=== PATIENT | female | born 1995 | race Caucasian/White ===

== ENCOUNTER 2017-07-23 12:29 | Emergency (ER) | payer OTHER ==
--- NOTE | 2017-07-23 13:24 | EDM.PDOC ---
ED HPI GENERAL MEDICAL PROBLEM - General Chief Complaint: Chest Pain Stated Complaint: CHEST PAIN Time Seen by Provider: 07/23/17 12:50 Source of Information: Reports: Patient History Limitations: Reports: No Limitations - History of Present Illness INITIAL COMMENTS - FREE TEXT/NARRATIVE: Patient is a 22-year-old female who presents to the ED complaining of sharp, tight, chest discomfort that has been present for the past 3 weeks. Pain is worse in the morning and also while exerting herself while at work. Patient works at [employer] and notes increasing pain with lifting items. At times she is short of breath with exertion. There is no cough. No hemoptysis. No recent concerns for infection. In addition she's lost approx. 30 pounds since April. States this is without trying. She's had a slight increase in her exercise routine including walking at night. Her diet is unchanged. Pain to the chest does wax and wane with intensity. Pain is worse with bending over. This is not related to food. She denies any acid reflux. There is no diarrhea or blood in her stool or dark tarry stools noted. She has a history anxiety and discontinued taking Prozac this past December. She states there is a family history of hypercoagulable disorders of unknown name. Her aunt had a blood clot to the lung last year that required intervention after suffering cardiac arrest twice while enroute to the hospital for definitive therapy. In addition there's been concerns of bruising easily to her lower extremities. Patient has not been diagnosed with asthma. States she's been using albuterol inhaler when her chest gets tight during exercise. Patient is on no control. She does not smoke. Left Upper Chest Pain Score (Numeric/FACES): 5 - Related Data Allergies Allergy/AdvReac Type Severity Reaction Status Date / Time amoxicillin Allergy Hives Verified 03/29/16 01:57 carbamide peroxide Allergy Rash Verified 03/29/16 01:57 [From Debrox] cefuroxime axetil Allergy Rash Verified 03/29/16 01:57 [From Ceftin] Home Meds: Home Meds . [No Known Home Meds] 07/23/17 [History] Past Medical History - Past Health History Medical/Surgical History: Denies Medical/Surgical History Respiratory History: Reports: Asthma CT MRI TECHNOLOGIST History: Reports: Other (See Below) Other OB/BYN History: ruptured right cyst 2 years ago - Past Surgical History HEENT Surgical History: Reports: Other (See Below) Other HEENT Surgeries/Procedures: wisdom teeth extraction Social & Family History - Family History Family Medical History: Noncontributory - Tobacco Use Smoking Status *Q: Never Smoker Second Hand Smoke Exposure: No - Caffeine Use Caffeine Use: Reports: None - Recreational Drug Use Recreational Drug Use: No - Living Situation & Occupation Living situation: Reports: with Family Occupation: Student ED ROS GENERAL - Review of Systems Review Of Systems: See Below Constitutional: Denies: Weakness, Fatigue, Decreased Appetite Respiratory: Reports: Shortness of Breath (at times with exertion. ). Denies: Cough, Hemoptysis Cardiovascular: Reports: Chest Pain (along the left sternal border 3rd and 4th intercostal space. ), Dyspnea on Exertion (at times) GI/Abdominal: Reports: No Symptoms Musculoskeletal: Reports: Back Pain (midthoracic back at times ) Skin: Reports: No Symptoms Neurological: Reports: No Symptoms ED EXAM, GENERAL - Physical Exam Exam: See Below Exam Limited By: No Limitations General Appearance: Alert, WD/WN, No Apparent Distress Ears: Hearing Grossly Normal Nose: Normal Inspection Throat/Mouth: Normal Voice, No Airway Compromise Head: Atraumatic, Normocephalic Neck: Normal Inspection, Supple Respiratory/Chest: No Respiratory Distress, Lungs Clear, Normal Breath Sounds, No Accessory Muscle Use, Other (Tenderness along the sternal border side 3 and 4th intercostal space. No swelling, no rash, no bony abnormalities.) Cardiovascular: Normal Peripheral Pulses, Regular Rate, Rhythm, No Murmur Peripheral Pulses: 4+: Radial (L) GI/Abdominal: Normal Bowel Sounds, Soft, Non-Tender, No Organomegaly, No Distention Extremities: Normal Inspection, Normal Range of Motion, Non-Tender, No Pedal Edema Neurological: Alert, Oriented, CN II-XII Intact, Normal Cognition, No Motor/ Sensory Deficits Psychiatric: Normal Affect, Normal Mood Skin Exam: Warm, Dry, Normal Color, No Rash Course - Vital Signs Last Recorded V/S: Last Vital Signs Temp 98.4 F 07/23/17 12:34 Pulse 104 H 07/23/17 12:34 Resp 18 07/23/17 12:34 BP 123/75 07/23/17 12:34 Pulse Ox 99 06/05/18 12:34 - Orders/Labs/Meds Orders: Active Orders 24 hr Category Date Time Status EKG Documentation Completion [RC] STAT Care 07/23/17 13:07 Active Chest 1V Frontal [CR] Stat Exams 07/23/17 13:07 Taken DRUG SCREEN, URINE [URCHEM] Stat Lab 07/23/17 13:38 Ordered HCG QUALITATIVE,URINE [URCHEM] Stat Lab 07/23/17 13:38 Ordered Labs: Laboratory Tests 07/23/17 07/23/17 07/23/17 Range/Units 13:25 13:25 13:25 WBC 8.10 (3.98-10.04) K/mm3 RBC 4.80 (3.98-5.22) M/mm3 Hgb 15.1 (11.2-15.7) gm/L Hct 41.9 (34.1-44.9) % MCV 87.3 (79.4-94.8) fl MCH 31.5 (25.6-32.2) pg MCHC 36.0 H (32.2-35.5) g/dl RDW Std Deviation 39.1 (36.4-46.3) fL Plt Count 277 (182-369) K/mm3 MPV 10.1 (9.4-12.3) fl Neutrophils % (Manual) 62 H (40-60) % Band Neutrophils % 0 (0-10) % Lymphocytes % (Manual) 32 (20-40) % Atypical Lymphs % 0 % Monocytes % (Manual) 3 (2-10) % Eosinophils % (Manual) 3 (0.7-5.8) % Basophils % (Manual) 0 L (0.1-1.2) Platelet Estimate Adequate Plt Morphology Comment Normal RBC Morph Comment Normal D-Dimer, Quantitative < 0.19 L (0.19-0.50) mg/L Sodium 138 (136-145) mEq/L Potassium 3.6 (3.5-5.1) mEq/L Chloride 105 (98-107) mEq/L Carbon Dioxide 23 (21-32) mEq/L Anion Gap 13.6 (5-15) BUN 9 (7-18) mg/dL Creatinine 0.8 (0.55-1.02) mg/dL Est Cr Clr Drug Dosing 96.86 mL/min Estimated GFR (MDRD) > 60 (>60) mL/min BUN/Creatinine Ratio 11.3 L (14-18) Glucose 112 H (74-106) mg/dL Calcium 9.0 (8.5-10.1) mg/dL Total Bilirubin 0.7 (0.2-1.0) mg/dL AST 9 L (15-37) U/L ALT 20 (14-59) U/L Alkaline Phosphatase 75 (46-116) U/L C-Reactive Protein < 0.2 (<1.0) mg/dL Total Protein 7.3 (6.4-8.2) g/dl Albumin 4.0 (3.4-5.0) g/dl Globulin 3.3 gm/dL Albumin/Globulin Ratio 1.2 (1-2) TSH 3rd Generation 0.828 (0.516-4.13) uIU/mL Urine Color (Yellow) Urine Appearance (Clear) Urine pH (5.0-8.0) Ur Specific [place] (1.005-1.030) Urine Protein (Negative) Urine Glucose (UA) (Negative) Urine Ketones (Negative) Urine Occult Blood (Negative) Urine Nitrite (Negative) Urine Bilirubin (Negative) Urine Urobilinogen (0.2-1.0) Ur Leukocyte Esterase (Negative) Urine RBC (0-5) /hpf Urine WBC (0-5) /hpf Ur Epithelial Cells (0-5) /hpf Urine Bacteria (FEW) /hpf Urine Mucus (FEW) /hpf Urine HCG, Qual (NEGATIVE) Urine Opiates Screen (NEGATIVE) Ur Buprenorphine Scrn (NEGATIVE) Ur Oxycodone Screen (NEGATIVE) Urine Methadone Screen (NEGATIVE) Ur Propoxyphene Screen (NEGATIVE) Ur Barbiturates Screen (NEGATIVE) Ur Tricyclics Screen (NEGATIVE) Ur Phencyclidine Scrn (NEGATIVE) Ur Amphetamine Screen (NEGATIVE) U Methamphetamines Scrn (NEGATIVE) U Benzodiazepines Scrn (NEGATIVE) U Cocaine Metab Screen (NEGATIVE) U Marijuana (THC) Screen (NEGATIVE) 07/23/17 07/23/17 07/23/17 Range/Units 13:38 13:38 13:38 WBC (3.98-10.04) K/mm3 RBC (3.98-5.22) M/mm3 Hgb (11.2-15.7) gm/L Hct (34.1-44.9) % MCV (79.4-94.8) fl MCH (25.6-32.2) pg MCHC (32.2-35.5) g/dl RDW Std Deviation (36.4-46.3) fL Plt Count (182-369) K/mm3 MPV (9.4-12.3) fl Neutrophils % (Manual) (40-60) % Band Neutrophils % (0-10) % Lymphocytes % (Manual) (20-40) % Atypical Lymphs % % Monocytes % (Manual) (2-10) % Eosinophils % (Manual) (0.7-5.8) % Basophils % (Manual) (0.1-1.2) Platelet Estimate Plt Morphology Comment RBC Morph Comment D-Dimer, Quantitative (0.19-0.50) mg/L Sodium (136-145) mEq/L Potassium (3.5-5.1) mEq/L Chloride (98-107) mEq/L Carbon Dioxide (21-32) mEq/L Anion Gap (5-15) BUN (7-18) mg/dL Creatinine (0.55-1.02) mg/dL Est Cr Clr Drug Dosing mL/min Estimated GFR (MDRD) (>60) mL/min BUN/Creatinine Ratio (14-18) Glucose (74-106) mg/dL Calcium (8.5-10.1) mg/dL Total Bilirubin (0.2-1.0) mg/dL AST (15-37) U/L ALT (14-59) U/L Alkaline Phosphatase (46-116) U/L C-Reactive Protein (<1.0) mg/dL Total Protein (6.4-8.2) g/dl Albumin (3.4-5.0) g/dl Globulin gm/dL Albumin/Globulin Ratio (1-2) TSH 3rd Generation (0.516-4.13) uIU/mL Urine Color Yellow (Yellow) Urine Appearance Clear (Clear) Urine pH 6.0 (5.0-8.0) Ur Specific [place] 1.015 (1.005-1.030) Urine Protein Negative (Negative) Urine Glucose (UA) Negative (Negative) Urine Ketones Negative (Negative) Urine Occult Blood Negative (Negative) Urine Nitrite Negative (Negative) Urine Bilirubin Negative (Negative) Urine Urobilinogen 0.2 (0.2-1.0) Ur Leukocyte Esterase Trace H (Negative) Urine RBC Not seen (0-5) /hpf Urine WBC 0-5 (0-5) /hpf Ur Epithelial Cells 0-5 (0-5) /hpf Urine Bacteria Rare (FEW) /hpf Urine Mucus Not seen (FEW) /hpf Urine HCG, Qual Negative (NEGATIVE) Urine Opiates Screen Negative (NEGATIVE) Ur Buprenorphine Scrn Negative (NEGATIVE) Ur Oxycodone Screen Negative (NEGATIVE) Urine Methadone Screen Negative (NEGATIVE) Ur Propoxyphene Screen Negative (NEGATIVE) Ur Barbiturates Screen Negative (NEGATIVE) Ur Tricyclics Screen Negative (NEGATIVE) Ur Phencyclidine Scrn Negative (NEGATIVE) Ur Amphetamine Screen Negative (NEGATIVE) U Methamphetamines Scrn Negative (NEGATIVE) U Benzodiazepines Scrn Negative (NEGATIVE) U Cocaine Metab Screen Negative (NEGATIVE) U Marijuana (THC) Screen Negative (NEGATIVE) - Re-Assessments/Exams Free Text/Narrative Re-Assessment/Exam: No IV required. Vital signs are stable. Initial labs and studies will include CBC, chem 14, CRP, d-dimer, urine drug tox , TSH UA, chest x-ray one view, EKG. HCG qualitative will be obtained as well. CXR: reviewed with Dr. Baeza with no concerning findings. Final interpretation is pending. EKG: Sinus rhythm rate of 88. No acute ST changes. Labs reviewed with no concerning findings. Findings on physical exam most likely related to costochondritis. Discharge instructions as documented. Departure - Departure Time of Disposition: 14:31 Disposition: Home, Self-Care 01 Condition: Good Clinical Impression: Costal chondritis Instructions: Costochondritis, [id number] Referrals: Jovita Lockwood PA-C [Primary Care Provider] - Forms: ED Department Discharge - My Orders Last 24 Hours: My Active Orders 07/23/17 13:07 EKG Documentation Completion [RC] STAT Chest 1V Frontal [CR] Stat 07/23/17 13:38 DRUG SCREEN, URINE [URCHEM] Stat HCG QUALITATIVE,URINE [URCHEM] Stat - Assessment/Plan Last 24 Hours: My Active Orders 07/23/17 13:07 EKG Documentation Completion [RC] STAT Chest 1V Frontal [CR] Stat 07/23/17 13:38 DRUG SCREEN, URINE [URCHEM] Stat HCG QUALITATIVE,URINE [URCHEM] Stat
[2017-07-23 15:05] VITALS: BP 101/64
--- NOTE | 2017-07-24 09:47 | CR ---
Chest: Portable view of the chest was obtained. Comparison: Prior chest x-ray of 03/29/16. Heart size and mediastinum are normal. Lungs are clear. Minimal scoliosis is noted within the spine. Impression: 1. Nothing acute is seen on portable chest x-ray. Diagnostic code #2
== END 2017-07-23 15:00 | disposition home or self-care (01) ==
LOC: JD.ED 12:29
DX: M94.0 Chondrocostal junction syndrome [Tietze] (principal); Z88.1 Allergy status to other antibiotic agents; Z88.8 Allergy status to other drugs, medicaments and biological substances
CPT/HCPCS: 36415; 71045; 71045-26; 80053; 80306; 81001; 81025; 84443; 85007; 85027; 85379; 86140; 93005; 93010; 99284-25; 99285-25

== ENCOUNTER 2021-04-24 02:53 | Emergency (ER) | payer OTHER ==
[2021-04-24 03:32] VITALS: BP 132/84; PULSE 104
[2021-04-24] MEDS ORDERED: Codeine/guaiFENesin 10-100 MG/5 ML Syrup 5 ML Syringe PO ONE (03:47)
[2021-04-24] MEDS ORDERED: Ketorolac 30 MG/ML SDV IM ONE (03:47)
[2021-04-24] MEDS ORDERED: Codeine/Promethazine 10-6.25 MG/5 ML Syrup 5 ML UD Cup PO ONE (04:12)
[2021-04-24] MEDS: Codeine/Promethazine 10-6.25 MG/5 ML Syrup 5 ML UD Cup ONE ×2 (04:13→04:17)
[2021-04-24 05:01] LABS: CORONAVIRUS COVID-19 NAA NEGATIVE (NEGATIVE)
== END 2021-04-24 05:21 | disposition home or self-care (01) ==
LOC: JD.ED 02:53
DX: J06.9 Acute upper respiratory infection, unspecified (principal); Z88.0 Allergy status to penicillin; Z88.1 Allergy status to other antibiotic agents; Z88.8 Allergy status to other drugs, medicaments and biological substances; Z20.822 Contact with and (suspected) exposure to COVID-19
CPT/HCPCS: 0241U; 71045; 96372; 99284; A9270; J1885

== ENCOUNTER 2021-04-29 23:04 | Emergency (ER) | payer OTHER ==
[2021-04-29 23:15] VITALS: BP 133/93; PULSE 109
[2021-04-30 00:12] LABS: CORONAVIRUS COVID-19 NAA POSITIVE (NEGATIVE)
[2021-04-30 00:28] LABS: STREP A BY PCR NOT DETECTED (NOT DETECT)
== END 2021-04-30 00:50 | disposition home or self-care (01) ==
LOC: JD.ED 23:04
DX: U07.1 COVID-19 (principal); J02.8 Acute pharyngitis due to other specified organisms; Z88.0 Allergy status to penicillin; Z88.1 Allergy status to other antibiotic agents
CPT/HCPCS: 0240U; 87651; 99283; 99284